=== PATIENT | male | born 1945 | race Caucasian/White ===

== ENCOUNTER 2018-10-01 16:17 | Inpatient (IN) | payer MEDICARE, SELFPAY ==
[2018-10-01 16:28] VITALS: BP 119/66; PULSE 69; RESP 14; TEMP 36.6; O2SAT 99
--- NOTE | 2018-10-01 16:41 | ED.ABDPAIN ---
HPI - Abdominal Pain General Chief Complaint: Abdominal Pain Stated Complaint: states incarcerated hernia Time Seen by Provider: 10/01/18 16:29 Source: patient Mode of arrival: ambulatory Limitations: no limitations History of Present Illness HPI narrative: 73-year-old male here for evaluation of a probable right inguinal incarcerated hernia. Patient was sent over by his provider the [facility]. He states that he has had a right inguinal hernia for many years now. He has had a repair in the past approximately 15 years ago. He states that for the past several years it has been protruding but will reduce on its own. He states that for the past several weeks specifically over the past month he has noticed that it has spent more time protruding and has been had some difficulty with reducing it. He states that over the past couple days he has had quite a bit of difficulty reducing and and now has quite a bit of discomfort. No vomiting. No change in bowel habits. No urinary symptoms. Patient states that his primary provider did not tried to reduce it prior to coming here to the ER. Related Data Home Medications Medication Instructions Recorded Confirmed No Known Home Medications 10/01/18 10/01/18 Allergies Allergy/AdvReac Type Severity Reaction Status Date / Time No Known Drug Allergies Allergy Verified 10/01/18 16:56 Review of Systems Constitutional Denies fever(s) and Denies headache(s) ENT Ears, Nose, Mouth, and Throat: Denies headache(s) Cardiovascular Denies chest pain and Denies dyspnea Respiratory Denies dyspnea Gastrointestinal Gastrointestinal: Reports abdominal pain, Denies change in stool character, Denies constipation, Denies diarrhea, Denies nausea and Denies vomiting Genitourinary Denies genital pain, Denies dysuria and Denies flank pain Comments: Right inguinal hernia Musculoskeletal Denies back pain, Denies myalgias and Denies arthralgias Integumentary/Breasts Denies rash Neurologic Denies confusion and Denies headache(s) Psychiatric Denies confusion Hematologic/Lymphatic Denies easy bleeding and Denies easy bruising [facility] Medical History Patient denies medical problems (Acute) Surgical History History of inguinal hernia repair (Acute) Social History marital status: lives independently: Yes Social History marital status: lives independently: Yes Exam Initial Vital Signs Initial Vital Signs: Vital Signs Temperature 97.9 F 10/01/18 16:28 Pulse Rate 69 10/01/18 16:28 Respiratory Rate 14 10/01/18 16:28 Blood Pressure 119/66 10/01/18 16:28 Pulse Oximetry 99 10/01/18 16:28 Const General: cooperative, well developed, well groomed and No acute distress Orientation: alert, awake and oriented x3 HENMT Head: normal to inspection and normocephalic Resp Effort & Inspection: normal respiratory effort Auscultation: clear to auscultation bilaterally Cardio Rate: regular rate Rhythm: regular rhythm Pulses: radial pulses present GI Inspection: non-distended Palpation: soft, No firm and No tender Rectal Exam: normal sphincter tone, No hemorrhoids and No lesions Other: Bright red blood per rectum External: circumcised Penis: normal penis Scrotum: scrotum normal Testes: normal Other: Right-sided inguinal hernia that was palpated and reduced with gentle pressure Skin Lesions: no lesions Rashes: no rashes Neuro General: alert, awake and oriented x3 Cognition: normal cognition Speech: speech normal Motor: muscle tone normal throughout Extrem General: normal to inspection and capillary refill normal Scores GCS Hallam coma scale eye opening: Spontaneous Alexis coma scale verbal response: Orientated Alexis coma scale motor response: Obey commands Alexis coma scale total score: 15 Course Orders Ordered: ED Orders 10/01/18 16:45 Complete Blood Count AUTO DIFF Stat Comprehensive Metabolic Panel Stat Lactate (Lactic Acid) Stat Lipase Stat 10/01/18 16:48 XR abdomen min 2V Stat 10/01/18 19:01 Education, smoking cessation ONGOING 10/01/18 19:09 CT abdomen pelvis wo/w con Urgent 10/02/18 06:15 Complete Blood Count AUTO DIFF DAILY 10/02/18 07:08 Prostate Specific Antigen Urgent Hydromorphone HCl (Dilaudid) 1 mg IV Q4HRWA PRN PRN Reason: Pain, Severe (7-10) Sodium Chloride (Normal Saline 0.9%) 1,000 mls @ 125 mls/hr IV CONT [place] Last Admin: 10/01/18 18:32 Dose: 125 mls/hr Sodium Chloride (Normal Saline 0.45%) 1,000 mls @ 100 mls/hr IV CONT [place] Ketorolac Tromethamine (Toradol) 30 mg IV Q6HR [place] Stop: 10/06/18 19:04 Lorazepam (Ativan) 1 mg IV Q6HR PRN PRN Reason: Anxiety Morphine Sulfate (Morphine) 4 mg IV Q4HR PRN PRN Reason: Pain, Mild (1-3) Ondansetron HCl (Zofran) 4 mg IV Q4HR PRN PRN Reason: Nausea And Vomiting Last Admin: 10/01/18 18:32 Dose: 4 mg Ondansetron HCl (Zofran) 4 mg IV Q8HR PRN PRN Reason: Nausea And Vomiting Oxycodone/Acetaminophen (Percocet 5/325) 2 tab PO Q4HR PRN PRN Reason: Pain, Severe (7-10) Polyethylene Glycol/Electrolytes (Golytely Solution) 4,000 ml PO NOW ONE Stop: 10/02/18 15:07 Discontinued Medications Lorazepam (Ativan) 1 mg IV NOW ONE Stop: 10/01/18 18:54 Last Admin: 10/01/18 18:55 Dose: 1 mg Morphine Sulfate (Morphine) 4 mg IV NOW ONE Stop: 10/01/18 18:12 Last Admin: 10/01/18 18:31 Dose: 4 mg Vital Signs - 8 hr 10/01/18 16:28 Temperature 97.9 F Pulse Rate 69 Respiratory Rate 14 Blood Pressure 119/66 Pulse Oximetry 99 MDM - Abdominal Pain Lab Data Attestation: I reviewed the patient's lab results. Result diagrams: 10/01/18 16:45 10/01/18 16:45 Lab Results 10/01/18 10/01/18 10/01/18 Range/Units 16:45 16:45 16:45 WBC 6.8 (4.5-11.0) X10^3/uL RBC 3.14 L (4.5-5.9) X10^6/uL Hgb 9.0 L (13.5-17.5) g/dL Hct 26.7 L (41-53) % MCV 85.1 (80-100) fL MCH 28.6 (26-34) PG MCHC 33.6 (30-36) % RDW 14.5 (11.6-14.8) % Plt Count 291 (150-400) X10^3/uL Neut % (Auto) 51.0 (50-75) % Lymph % (Auto) 36.2 (25-40) % [place] % (Auto) 9.9 (3-14) % Eos % (Auto) 2.2 (2-4) % Baso % (Auto) 0.7 (0-2) % Neut # (Auto) 3500 (3802-9131) /uL Lymph # (Auto) 2500 (0075-7807) /uL [place] # (Auto) 700 (0-900) /uL Eos # (Auto) 100 (0-450) /uL Baso # (Auto) 100 (0-100) /uL Sodium 143 (137-145) mmol/L Potassium 3.7 (3.4-5.1) mmol/L Chloride 109 H (98-107) mmol/L Carbon Dioxide 25 (22-32) mmol/L BUN 21 H (9-20) mg/dL Creatinine 1.10 (0.66-1.25) mg/dL Estimated GFR > 60.0 (>60) mL/min BUN/Creatinine Ratio 19.1 (6-22) Glucose 132 H (80-110) mg/dL Lactate 1.3 (0.7-2.1) mmol/L Calcium 9.0 (8.4-10.2) mg/dL Total Bilirubin 0.2 (0.2-1.3) mg/dL AST 28 (17-59) IU/L ALT 20 L (21-72) IU/L Alkaline Phosphatase 61 (38-126) U/L Total Protein 6.3 (6.3-8.2) g/dL Albumin 3.8 (3.5-5.0) g/dL Globulin 2.5 (1.7-4.1) g/dL Albumin/Globulin Ratio 1.5 (1.0-2.8) Lipase 57 (23-300) U/L Imaging Data Abdominal x-ray: Radiologist's impression: [address] [address] XRay Report Signed Patient: Migue Molina R#: [id number] : 1946Acct:[id number] Age/Sex: 73 / MDate of Service: 10/01/18 Loc: ED Accession Number: [id number] Procedure: XR abdomen min 2V Ordering Provider: Ivan Underwood D.O. PROCEDURE: XR ABDOMEN MIN 2V INDICATIONS: Evaluation for obstruction TECHNIQUE: 2 views of the abdomen were acquired. COMPARISON: None. FINDINGS: Surgical changes and devices: None. Bowel: No pneumoperitoneum. The bowel gas pattern is normal. Soft tissues: No masses; visualized solid organ contours appear normal in size. No suspicious abdominal calcifications. Bones: No suspicious bony abnormalities. There is moderate scoliosis. Moderate to severe degenerative disc and facet disease in lumbar spine. IMPRESSION: Nonobstructive bowel gas pattern. If clinical symptoms persist or clinical suspicion for pathology is high, CT is suggested for further evaluation. Dictated by: Jessica Sutherland M.D. on 10/01/2018 at 17:39 Approved by: Jessica Sutherland M.D. on 10/01/2018 at 17:40 MDM Narrative Medical decision making narrative: Patient does have a right-sided inguinal hernia. I was able to reduce it here in the emergency department with gentle pressure however did immediately protruded again. The patient did have some discomfort however initially declined any pain medication. He is not having any urinary symptoms. When the patient was getting up to get his x-ray it was noticed that he did have some bright red blood on the bed sheets. We was question about this he stated that he has had bright red blood per rectum for the past several days. Patient denies any pain with bowel movements. His states that actually he has had this bleeding for several days now and potentially more serous than with the patient describes. He initially did not mention this to me. The rectal exam was performed and no hemorrhoids were felt. His H&H was slightly low today would not at a point for transfusion. He is not tachycardic. I did discuss the case with General surgery who recommended the x-ray of the abdomen which was unremarkable. His lactate unremarkable. General surgery admit for further evaluation. I informed the patient that because his hernia is reduced the more important issue right now is his rectal bleeding. Patient seemed unhappy about this secondary to the discomfort he was having from his hernia. General surgery did evaluate him here in the emergency department. Holding orders were placed. Discharge Plan Departure Patient Disposition: Admitted as Observation Clinical Impression: Rectal bleed Abdominal pain Qualifiers: Abdominal location: right lower quadrant Qualified Code(s): R10.31 - Right lower quadrant pain Inguinal hernia Qualifiers: Obstruction and gangrene presence: without obstruction or gangrene Laterality: unilateral Recurrence: recurrent Qualified Code(s): K40.91 - Unilateral inguinal hernia, without obstruction or gangrene, recurrent Admit Date/Time: 10/01/18 18:49 Admit Provider: Jun Macias
--- NOTE | 2018-10-01 16:48 | DI.RAD.S_ITS ---
PROCEDURE: XR ABDOMEN MIN 2V INDICATIONS: Evaluation for obstruction TECHNIQUE: 2 views of the abdomen were acquired. COMPARISON: None. FINDINGS: Surgical changes and devices: None. Bowel: No pneumoperitoneum. The bowel gas pattern is normal. Soft tissues: No masses; visualized solid organ contours appear normal in size. No suspicious abdominal calcifications. Bones: No suspicious bony abnormalities. There is moderate scoliosis. Moderate to severe degenerative disc and facet disease in lumbar spine. IMPRESSION: Nonobstructive bowel gas pattern. If clinical symptoms persist or clinical suspicion for pathology is high, CT is suggested for further evaluation. Dictated by: Jessica Sutherland M.D. on 10/01/2018 at 17:39 Approved by: Jessica Sutherland M.D. on 10/01/2018 at 17:40
[2018-10-01 17:00] LABS: Add Manual Diff / Slide Review NO; Basophils Absolute Auto 100 /uL (0-100); Basophils Percent Auto 0.7 % (0-2); Eosinophils Absolute Auto 100 /uL (0-450); Eosinophils Percent Auto 2.2 % (2-4); Hematocrit 26.7 % (41-53); Lymphocytes Absolute Auto 2500 /uL (1100-4500); Lymphocytes Percent Auto 36.2 % (25-40); Mean Corpuscular HGB Conc 33.6 % (30-36); Mean Corpuscular Hemoglobin 28.6 PG (26-34); Mean Corpuscular Volume 85.1 fL (80-100); Monocytes Absolute Auto 700 /uL (0-900); Monocytes Percent Auto 9.9 % (3-14); Neutrophils Absolute Auto 3500 /uL (1500-7000); Platelet Count 291 X10^3/uL (150-400); Red Blood Cell Count 3.14 X10^6/uL (4.5-5.9); Red Cell Distribution Width 14.5 % (11.6-14.8); White Blood Cell Count 6.8 X10^3/uL (4.5-11.0)
[2018-10-01 17:17] LABS: Lactate (Lactic Acid) 1.3 mmol/L (0.7-2.1)
[2018-10-01 17:18] LABS: Alanine Aminotransferase 20 IU/L (21-72); Albumin 3.8 g/dL (3.5-5.0); Albumin Globulin Ratio 1.5 (1.0-2.8); Alkaline Phosphatase 61 U/L (38-126); Aspartate Aminotransferase 28 IU/L (17-59); BUN Creatinine Ratio 19.1 (6-22); Bilirubin Total 0.2 mg/dL (0.2-1.3); Blood Urea Nitrogen 21 mg/dL (9-20); Carbon Dioxide 25 mmol/L (22-32); Chloride 109 mmol/L (98-107); Estimated Glomerular Filt Rate > 60.0 mL/min (>60); Globulin 2.5 g/dL (1.7-4.1); Glucose 132 mg/dL (80-110); HEMOLYSIS 26 (0-50); Lipase 57 U/L (23-300); Potassium 3.7 mmol/L (3.4-5.1); Sodium 143 mmol/L (137-145); Total Protein 6.3 g/dL (6.3-8.2)
[2018-10-01] MEDS: MORPHINE 4 MG/ML INJ IV (18:31)
[2018-10-01] MEDS: ONDANSETRON 4 MG/2 ML INJ IV (18:32)
[2018-10-01] MEDS: SODIUM CHLORIDE 0.9% 1,000 ML 125 ML IV (18:32)
[2018-10-01] MEDS: LORazepam 2 MG/ML INJ 1 MG IV (18:55)
--- NOTE | 2018-10-01 19:09 | DI.CT.S_ITS ---
PROCEDURE: CT ABDOMEN PELVIS W CON INDICATIONS: pelvic and lumbar pain , rectal bleeding, prostate cancer TECHNIQUE: After the administration of intravenous contrast, 5 mm thick sections acquired from the diaphragm to the symphysis. 5 mm coronal and sagittal reformats were acquired. For radiation dose reduction, the following was used: automated exposure control, adjustment of mA and/or kV according to patient size. COMPARISON: None. FINDINGS: Image quality: Degraded by patient motion artifact. ABDOMEN: Lung bases: Lung bases are clear. Heart size is normal. Solid organs: Liver is normal in size and enhancement. There are numerous subcentimeter hepatic hypodensities scattered throughout the liver which are to small to characterize accurately. The largest measures approximately 2.7 cm in diameter and measures simple fluid attenuation. These are likely multiple hepatic cysts. Gallbladder is unremarkable. Biliary system is non dilated. Pancreas enhances normally. Spleen is normal in size and enhancement. No adrenal nodules. Kidneys demonstrate normal size and enhancement, without hydronephrosis. Peritoneum and bowel: Bowel loops demonstrate normal wall thickness and caliber. No free fluid or air. Nodes and vessels: No retroperitoneal or mesenteric adenopathy by size criteria. Aorta and inferior vena cava are normal in size. Miscellaneous: No ventral hernias. Fat containing umbilical hernia without acute inflammation. PELVIS: Genitourinary: Bladder wall thickness is normal. Miscellaneous: No inguinal hernias or adenopathy. Bones: There is a subtle tiny lucencies involving the osseous structures of the iliac wing bilaterally and upper sacrum. Similar findings in the lumbar spine which are predominantly noted near the endplates. These may be related to decreased bone mineralization. No sclerotic lesions or other suspicious intraosseous lesions identified. Moderate multilevel lumbar spondylosis. There is a moderate levoscoliosis of the lumbar spine centered at L4. No acute vertebral body compression fractures. IMPRESSION: 1. CT abdomen and pelvis without acute abnormalities. 2. Moderate levoscoliosis of the lumbar spine with associated multilevel lumbar spondylosis. No acute compression fractures. 3. Multiple scattered hepatic hypodensities with most being too small to accurately characterize. The largest measures simple fluid attenuation. Findings are likely related to multiple hepatic cysts. However, metastatic disease not completely excluded given the reported history of prostate cancer. 4. A few, subtle and tiny osseous lucencies noted in the lumbar spine and iliac wings which may be related to decreased bone mineralization. No sclerotic lesions identified. Consider further evaluation with nuclear medicine bone scan if there is clinical concern for osseous metastases. Dictated by: Arie Costello M.D. on 10/01/2018 at 23:50 Approved by: Arie Costello M.D. on 10/02/2018 at 0:06
--- NOTE | 2018-10-01 19:14 | PM.HP.1 ---
History of Present Illness Date Patient Seen: 10/01/18 Time Patient Seen: 19:14 Chief complaint: states incarcerated hernia Narrative: 73-year-old white male comes emergency room with numerous complaints. Most notably a right inguinal hernia which he is not able to reduce. He has had this hernia for a decade. This is a recurrence hernia which normally is reducible. Additionally the patient has bright red rectal bleeding for months. Furthermore he has excruciating pain in the low lumbar area on the right side radiating down the right leg. Patient has a history of prostatectomy for cancer about 12 years ago. He has not had follow-up for the last 5 years. He says that 5 years ago had a normal PSA. Had a colonoscopy over a decade ago. He has had this rectal bleeding for months. He is anemic with a hemoglobin of 9. He is writhing in bed with pain in his right thigh and right hip. Patient History Medical History Patient denies medical problems (Acute) Surgical History History of inguinal hernia repair (Acute) Social History marital status: lives independently: Yes Family & Social History Social History: lives independently Yes Meds Home Medications Medication Instructions Recorded Confirmed Type No Known Home Medications 10/01/18 10/01/18 History Allergies Allergy/AdvReac Type Severity Reaction Status Date / Time No Known Drug Allergies Allergy Verified 10/01/18 16:56 Review of Systems Review of Systems All systems reviewed & are unremarkable except as noted in HPI and below Exam Vital Signs (past 8 hours): - 10/01/18 16:28 Temperature 97.9 F Pulse Rate 69 Respiratory Rate 14 Blood Pressure 119/66 Pulse Oximetry 99 Oxygen Delivery Method Room Air Narrative Exam Narrative: Patient is writhing in bed in acute pain that he has difficulty pinpointing. Pain is really in his right hip and femoral area lateral aspect of the right thigh seems to be emanating from his lumbar spine. Patient also has a reducible right inguinal hernia which I do not think is causing this pain. Lungs are clear with no rales or wheezes Heart regular rhythm no murmur Abdomen is soft and nontender no organomegaly is noted He has a reducible right inguinal hernia which is direct. Rectal exam reveals no mass but he has cathy red blood at the anal verge and a posterior fissure in ANO which is very tender and painful. Neurologic appears to be intact at this time He does have tenderness to percussion of the lumbar spine. Objective Labs Result Diagrams: 10/01/18 16:45 10/01/18 16:45 Labs: Laboratory Results - last 24 hr 10/01/18 10/01/18 10/01/18 16:45 16:45 16:45 WBC 6.8 RBC 3.14 L Hgb 9.0 L Hct 26.7 L MCV 85.1 MCH 28.6 MCHC 33.6 RDW 14.5 Plt Count 291 Neut % (Auto) 51.0 Lymph % (Auto) 36.2 [place] % (Auto) 9.9 Eos % (Auto) 2.2 Baso % (Auto) 0.7 Neut # (Auto) 3500 Lymph # (Auto) 2500 [place] # (Auto) 700 Eos # (Auto) 100 Baso # (Auto) 100 Sodium 143 Potassium 3.7 Chloride 109 H Carbon Dioxide 25 BUN 21 H Creatinine 1.10 Estimated GFR > 60.0 BUN/Creatinine Ratio 19.1 Glucose 132 H Lactate 1.3 Calcium 9.0 Total Bilirubin 0.2 AST 28 ALT 20 L Alkaline Phosphatase 61 Total Protein 6.3 Albumin 3.8 Globulin 2.5 Albumin/Globulin Ratio 1.5 Lipase 57 Assessment & Plan Assessment & Plan narrative: Patient has numerous problems. He came here because he thought his incarcerated right inguinal hernia was causing all this pain. Actually is hernia is fairly easy to reduce. Abdominal films show no bowel obstruction. He has been passing flatus and having bowel movements. He has had rectal bleeding for 2 months at least. Most recent colonoscopy over a decade ago. He has considerable bone pain in the lumbar spine which is radiating down the right leg which I believe may be related to his prostate cancer. He had a prostatectomy about 12 years ago and has not had follow-up for 5 years. My plan is abdominal pelvic CT the look at his bones with possible metastatic prostate cancer. Will see if there is any visceral issue on a CT scan as well. Patient will be prepped tomorrow for colonoscopy the following day. His hemoglobin is 9 and he does not require transfusion at this time. Will check a PSA. Ultimately if he is cleared of the above-mentioned issues I will repair the recurrent right inguinal hernia. I think the hernia is the least of his problems at this time. I have explained this to the patient and his who understand and agree to the plan. Roberto will get him comfortable with Dilaudid Ativan and other medications.
[2018-10-01 20:31] VITALS: O2SAT 96; BMI 27.5
[2018-10-01] MEDS: SODIUM CHLORIDE 0.45% 1,000 ML 100 ML IV (20:47)
[2018-10-01 20:56] VITALS: BP 127/76; PULSE 64; RESP 18; TEMP 36.9; O2SAT 96
[2018-10-01] MEDS: OXYCODONE/ACETAMINOPHEN 5/325 TABLET 2 TAB PO (21:05)
[2018-10-01 23:10] VITALS: BP 101/55; PULSE 63; RESP 18; TEMP 36.9; O2SAT 97
--- NOTE | 2018-10-01 23:44 | PC.NURSE ---
Addendum entered by Hattie Escalante R.N. 10/01/18 23:53: 2100- Pt c/o pain to rectal/right groin area 6-09/25, medicated with percocet 1 tab and Tylenol 325mg, effective. Original Note: 2029- Pt arrived to room 221 from ED via bed. A/O x4, 96%RA, LS clear, denies SOB. RFA 1/2 NS @ 100. SBA to BRP to void. Pt reported severe pain in ED, from rectum and inguinal hernia, which radiates to right upper thigh and across thigh. Reports pain at a tolerable level of 3/10 at this time. Educated on pain management and pt agreeable to ask for pain meds, not to let the pain get out of control. Bowel prep ordered for tomorrow, followed by colonoscopy on . Pt educated and aware of the effects of bowel prep, and has agreed to wear brief and use BSC. Bed alarm on for safety. Call light in reach.
[2018-10-02] VITALS (9 sets, daily range): BP systolic 113–147; BP diastolic 56–84; PULSE 48–62; RESP 16–17; TEMP 36.4–36.9; O2SAT 94–98
[2018-10-02] MEDS: KETOROLAC 30 MG/ML VIAL IV ×5 (00:01→23:46)
--- NOTE | 2018-10-02 04:41 | PC.NURSE ---
Pt VSS, Lung sounds clear bilaterally, CMS intact and Bowel tones positive. Pt's pain has been under control this shift. Pt is on clear liquid diet and will be prepped for Colonoscopy that is on 09/03/18.
[2018-10-02] MEDS: SODIUM CHLORIDE 0.45% 1,000 ML 100 ML IV (05:55)
[2018-10-02] MEDS: HYDROMORPHONE 1 MG INJ IV ×2 (06:23→16:17)
[2018-10-02 07:10] LABS: Add Manual Diff / Slide Review NO; Basophils Absolute Auto 0 /uL (0-100); Basophils Percent Auto 0.6 % (0-2); Eosinophils Absolute Auto 100 /uL (0-450); Eosinophils Percent Auto 2.1 % (2-4); Hematocrit 25.4 % (41-53); Hemoglobin 8.1 g/dL (13.5-17.5); Lymphocytes Absolute Auto 2200 /uL (1100-4500); Lymphocytes Percent Auto 37.3 % (25-40); Mean Corpuscular Hemoglobin 27.5 PG (26-34); Mean Corpuscular Volume 86.1 fL (80-100); Monocytes Absolute Auto 500 /uL (0-900); Monocytes Percent Auto 8.4 % (3-14); Neutrophils Absolute Auto 3000 /uL (1500-7000); Neutrophils Percent Auto 51.6 % (50-75); Platelet Count 261 X10^3/uL (150-400); Red Blood Cell Count 2.95 X10^6/uL (4.5-5.9); Red Cell Distribution Width 14.6 % (11.6-14.8); White Blood Cell Count 5.8 X10^3/uL (4.5-11.0)
[2018-10-02 08:18] LABS: Prostate Specific Antigen < 0.064 ng/mL (0.10-4.00)
--- NOTE | 2018-10-02 09:19 | PM.PN.1 ---
Subjective Date Patient Seen: 10/02/18 Time Patient Seen: 09:19 Interval history: The patient has had a quiet night after receiving significant analgesia through the night alleviating his disabling hip and back pain. He is comfortable in bed this morning seems to be pain free has no nausea or vomiting Exam Vital Signs (past 8 hours): - 10/02/18 03:10 Temperature 98.4 F Pulse Rate 62 Respiratory Rate 17 Blood Pressure 119/56 L Pulse Oximetry 97 Oxygen Delivery Method Room Air Oxygen Flow Rate 0 Narrative Exam Narrative: Patient is alert and oriented much more comfortable than last night Abdomen is soft and nontender Patient still has a reducible right inguinal hernia There are no new findings Objective Labs Result Diagrams: 10/02/18 06:58 10/01/18 16:45 Labs: Laboratory Results - last 24 hr 10/01/18 10/01/18 10/01/18 16:45 16:45 16:45 WBC 6.8 RBC 3.14 L Hgb 9.0 L Hct 26.7 L MCV 85.1 MCH 28.6 MCHC 33.6 RDW 14.5 Plt Count 291 Neut % (Auto) 51.0 Lymph % (Auto) 36.2 [place] % (Auto) 9.9 Eos % (Auto) 2.2 Baso % (Auto) 0.7 Neut # (Auto) 3500 Lymph # (Auto) 2500 [place] # (Auto) 700 Eos # (Auto) 100 Baso # (Auto) 100 Sodium 143 Potassium 3.7 Chloride 109 H Carbon Dioxide 25 BUN 21 H Creatinine 1.10 Estimated GFR > 60.0 BUN/Creatinine Ratio 19.1 Glucose 132 H Lactate 1.3 Calcium 9.0 Total Bilirubin 0.2 AST 28 ALT 20 L Alkaline Phosphatase 61 Total Protein 6.3 Albumin 3.8 Globulin 2.5 Albumin/Globulin Ratio 1.5 Lipase 57 Prostate Specific Ag 10/02/18 10/02/18 06:58 06:58 WBC 5.8 RBC 2.95 L Hgb 8.1 L Hct 25.4 L MCV 86.1 MCH 27.5 MCHC 32.0 RDW 14.6 Plt Count 261 Neut % (Auto) 51.6 Lymph % (Auto) 37.3 [place] % (Auto) 8.4 Eos % (Auto) 2.1 Baso % (Auto) 0.6 Neut # (Auto) 3000 Lymph # (Auto) 2200 [place] # (Auto) 500 Eos # (Auto) 100 Baso # (Auto) 0 Sodium Potassium Chloride Carbon Dioxide BUN Creatinine Estimated GFR BUN/Creatinine Ratio Glucose Lactate Calcium Total Bilirubin AST ALT Alkaline Phosphatase Total Protein Albumin Globulin Albumin/Globulin Ratio Lipase Prostate Specific Ag < 0.064 L Assessment & Plan Assessment & Plan narrative: Patient had a CT scan of the abdomen and pelvis. There are no significant visceral abnormalities other than numerous small cysts in the liver. These are interpreted by the radiologist as being likely cystic not solid. He does have numerous abnormalities small lucencies throughout the pelvis. These are scattered both sides of the pelvis and could represent prostatic malignancy metastatic disease. Radiologist is uncertain about that. Recommendation was for a bone scan which is ordered. Patient's hemoglobin has fallen from 9-8 this morning. Patient has had months of red rectal bleeding. After the bone scan today he will have a colonoscopy prep and I have scheduled his colonoscopy for 1:00 a.m. tomorrow afternoon. Patient and his understand all of the above data and agreed to proceeding with a colonoscopy.
--- NOTE | 2018-10-02 09:23 | P.PN_ITS ---
Subjective Date Patient Seen: 10/02/18 Time Patient Seen: 09:19 Interval history: The patient has had a quiet night after receiving significant analgesia through the night alleviating his disabling hip and back pain. He is comfortable in bed this morning seems to be pain free has no nausea or vomiting Exam Vital Signs (past 8 hours): - 10/02/18 03:10 Temperature 98.4 F Pulse Rate 62 Respiratory Rate 17 Blood Pressure 119/56 L Pulse Oximetry 97 Oxygen Delivery Method Room Air Oxygen Flow Rate 0 Narrative Exam Narrative: Patient is alert and oriented much more comfortable than last night Abdomen is soft and nontender Patient still has a reducible right inguinal hernia There are no new findings Objective Labs Result Diagrams: 10/02/18 06:58 10/01/18 16:45 Labs: Laboratory Results - last 24 hr 10/01/18 10/01/18 10/01/18 16:45 16:45 16:45 WBC 6.8 RBC 3.14 L Hgb 9.0 L Hct 26.7 L MCV 85.1 MCH 28.6 MCHC 33.6 RDW 14.5 Plt Count 291 Neut % (Auto) 51.0 Lymph % (Auto) 36.2 [place] % (Auto) 9.9 Eos % (Auto) 2.2 Baso % (Auto) 0.7 Neut # (Auto) 3500 Lymph # (Auto) 2500 [place] # (Auto) 700 Eos # (Auto) 100 Baso # (Auto) 100 Sodium 143 Potassium 3.7 Chloride 109 H Carbon Dioxide 25 BUN 21 H Creatinine 1.10 Estimated GFR > 60.0 BUN/Creatinine Ratio 19.1 Glucose 132 H Lactate 1.3 Calcium 9.0 Total Bilirubin 0.2 AST 28 ALT 20 L Alkaline Phosphatase 61 Total Protein 6.3 Albumin 3.8 Globulin 2.5 Albumin/Globulin Ratio 1.5 Lipase 57 Prostate Specific Ag 10/02/18 10/02/18 06:58 06:58 WBC 5.8 RBC 2.95 L Hgb 8.1 L Hct 25.4 L MCV 86.1 MCH 27.5 MCHC 32.0 RDW 14.6 Plt Count 261 Neut % (Auto) 51.6 Lymph % (Auto) 37.3 [place] % (Auto) 8.4 Eos % (Auto) 2.1 Baso % (Auto) 0.6 Neut # (Auto) 3000 Lymph # (Auto) 2200 [place] # (Auto) 500 Eos # (Auto) 100 Baso # (Auto) 0 Sodium Potassium Chloride Carbon Dioxide BUN Creatinine Estimated GFR BUN/Creatinine Ratio Glucose Lactate Calcium Total Bilirubin AST ALT Alkaline Phosphatase Total Protein Albumin Globulin Albumin/Globulin Ratio Lipase Prostate Specific Ag < 0.064 L Assessment & Plan Assessment & Plan narrative: Patient had a CT scan of the abdomen and pelvis. There are no significant visceral abnormalities other than numerous small cysts in the liver. These are interpreted by the radiologist as being likely cystic not solid. He does have numerous abnormalities small lucencies throughout the pelvis. These are scattered both sides of the pelvis and could represent prostatic malignancy metastatic disease. Radiologist is uncertain about that. Recommendation was for a bone scan which is ordered. Patient's hemoglobin has fallen from 9-8 this morning. Patient has had months of red rectal bleeding. After the bone scan today he will have a colonoscopy prep and I have scheduled his colonoscopy for 1:00 a.m. tomorrow afternoon. Patient and his understand all of the above data and agreed to proceeding with a colonoscopy.
[2018-10-02] MEDS: DEXTROSE 5%-0.45% NS 1,000 ML 100 ML IV ×2 (11:08→21:12)
--- NOTE | 2018-10-02 12:00 | DI.NM.S_ITS ---
PROCEDURE: NM BONE SCAN WHOLE BODY RADIOPHARMACEUTICAL: 21.6 mCi Tc-99m MDP IV. INDICATIONS: prostate cancer..pelvic mets possible TECHNIQUE: Delayed whole-body scintigrams were obtained approximately 3-4 hours after intravenous injection of radiotracer. Anterior and posterior views were acquired from vertex to feet. COMPARISON: [facility], CT, CT ABDOMEN PELVIS W CON, 10/01/2018, 19:30. [facility], CR, XR ABDOMEN MIN 2V, 10/01/2018, 17:20. [facility], MR, MR LUMBAR SPINE W CON, 10/02/2018, 19:50. FINDINGS: No scintigraphic abnormalities on bone scan in the iliac bones to correlate with small lucencies seen on CT. There are foci of increased uptake in cervical, thoracic and lumbar spine with distribution indistinguishable from degenerative disc and facet disease. The comparison CT demonstrate degenerative changes in lumbar spine. Early metastasis to spine could be obscured by degenerative changes. There are foci of increased periarticular activity involving shoulders, sternomanubrial joint, sternoclavicular joints, elbows, wrists, right knee, right ankle and left foot, compatible with degenerative/arthritic changes. IMPRESSION: 1. No definitive scintigraphic findings to suggest metastatic disease. 2. Small lucencies seen on CT in lumbar spine and iliac wings are likely below the resolution of bone scan. 3. Degenerative/osteolytic changes as described. Dictated by: Jessica Sutherland M.D. on 10/04/2018 at 14:35 Approved by: Jessica Sutherland M.D. on 10/04/2018 at 16:12
--- NOTE | 2018-10-02 13:02 | DI.MRI.S_ITS ---
PROCEDURE: MR LUMBAR SPINE W CON INDICATIONS: POSSIBLE METASTATIC DISEASE TECHNIQUE: Localizer sequences followed by coronal T1. Patient unable to continue exam secondary to right hip pain. COMPARISON: [facility], CT, CT ABDOMEN PELVIS W CON, 10/01/2018, 19:30. FINDINGS: Limited study aborted early, nondiagnostic. There is small focal lesions in L3 and L4 which may represent hemangiomas. IMPRESSION: Patient unable to tolerate examination. Study terminated early. Nondiagnostic study. Comment: Patient is noted to be scheduled for bone scan tomorrow. Consider whether to reschedule this exam following bone scan. Perhaps, patient might require sedation. Dictated by: Bruno Holden M.D. on 10/02/2018 at 21:02 Approved by: Bruno Holden M.D. on 10/02/2018 at 21:05
[2018-10-02] MEDS: PEG3350/SOD SULF,BICARB,CL/KCL 4,000 ML SOLUTION 4000 ML PO (16:01)
[2018-10-02] MEDS: ONDANSETRON 4 MG/2 ML INJ IV (19:03)
--- NOTE | 2018-10-02 20:12 | PC.NURSE ---
Addendum entered by Kimber Walker R.N. 10/02/18 20:53: pt unable to complete MRI due to pain and nausea. When pt arrived back to room he vomited over 400ml of clear fluids. Voided 225 of concentrated urine. Encouraged oral fluids, both water and GoLytely. pt reporting 7/10 pain and feels generalized malaise. Original Note: pt AO and receptive to care. Fatigued and sleeping most of shift. D5 1/2 NS infusing at 100/hr. VSS. RLQ tenderness and 7/10 pain. Dilaudid 1ml IV administered at 1615. Colonoscopy scheduled for 10/03 at 1300 and placed GoLYTELY at bedside at 1600 will instructions to complete this evening (2100) and pt agreed. I had to wake pt up a couple times to remind him to continue to drink the solution. pt started vomiting around 1850 after taking a couple sips, 5ml of clear emesis in bag. Zofran administered and pt reported feeling a little better, although he still reports a generalized malaise.
--- NOTE | 2018-10-02 20:18 | PC.NURSE ---
OFF FLOOR FOR MRI left floor at 1999 for MRI. pt saline locked and transferred to wheelchair.
[2018-10-03] VITALS (14 sets, daily range): BP systolic 99–137; BP diastolic 65–77; PULSE 45–60; RESP 11–18; TEMP 36.3–36.8; O2SAT 94–100; BMI 28.2
[2018-10-03] MEDS: MORPHINE 2 MG/ML INJ 4 MG IV ×4 (02:38→21:06)
--- NOTE | 2018-10-03 06:07 | PC.NURSE ---
Addendum entered by Saranya Quiñones R.N. 10/03/18 06:44: Pt has about a quarter left of his bowel prep to finish. He is working hard on it. Encouraging him to try to finish it before 0700. Original Note: Pt is AxOx3, at beginning of shift at 2300 pt had only drank half of his Golytely Prep. He had been having some bouts of emesis during evening shift. He is no longer nauseous but just having a hard time getting all of it down. Dr. Macias called last night for any further instructions or instructions on how to address the bowel prep. Dr. Macias instructed to encourage pt to continue to finish prep til the morning since his colonoscopy isn't scheduled until today at 1300. He has been working on finishing the prep throughout the night. He has had 3 liquid brown BMs (some with small cathy red blood). HR has been rosalina in the 50s. Asymptomatic. Difficulties with adequate pain management. Pain said the Dilaudid from evening shift made him not feel great, he thinks the Toradol has been having some effect. I gave 2mg morphine for right leg pain, it was ineffective, I then gave the rest of the dose for a total of 4mg morphine and that was effective as per patient. His pain is not so much the groin. His main complaint is the outside of his right leg. Urine output has been much better since trying to drink the bowel prep. Urine is clear light yellow. Ambulates independently to bathroom in room. IVF running as ordered.
[2018-10-03] MEDS: KETOROLAC 30 MG/ML VIAL IV ×4 (06:33→23:45)
[2018-10-03] MEDS: BISACODYL 5 MG TABLET 20 MG PO ×2 (06:58→10:07)
[2018-10-03 07:29] LABS: Add Manual Diff / Slide Review NO; Basophils Absolute Auto 0 /uL (0-100); Basophils Percent Auto 0.5 % (0-2); Eosinophils Absolute Auto 100 /uL (0-450); Eosinophils Percent Auto 1.7 % (2-4); Hematocrit 26.5 % (41-53); Hemoglobin 8.5 g/dL (13.5-17.5); Lymphocytes Absolute Auto 2100 /uL (1100-4500); Lymphocytes Percent Auto 31.6 % (25-40); Mean Corpuscular Hemoglobin 27.5 PG (26-34); Mean Corpuscular Volume 85.7 fL (80-100); Monocytes Absolute Auto 500 /uL (0-900); Monocytes Percent Auto 7.4 % (3-14); Neutrophils Absolute Auto 4000 /uL (1500-7000); Neutrophils Percent Auto 58.8 % (50-75); Platelet Count 277 X10^3/uL (150-400); Red Cell Distribution Width 14.3 % (11.6-14.8); White Blood Cell Count 6.8 X10^3/uL (4.5-11.0)
[2018-10-03] MEDS: ONDANSETRON 4 MG/2 ML INJ IV ×2 (08:00→22:03)
--- NOTE | 2018-10-03 08:39 | CM.DANOTE ---
Discharge Planning/Care Management DCP: assessment: case received yesterday and discussed in Team Rounds. Testing was in place as full dx and treatment plan was in process. EMR reviewed. Planned to see pt this morning to continue the assessment process. Met now with pt as planned. Introduced self and role. Pt is a 73 year old male who admitted to care of General Surgeons: Dr. Macias. Payer: Medicare PCP: pt says he has not seen a doctor in 10 years and has no PCP. Pt acknowledges that his initial assessment of an incarcerated hernia may not be all that is going on in his body. The lumbar MRI was attempted yesterday but too painful/R Hip and outer thigh so was cut short. A bone scan is planned today. Pt reports he is typically functionally independent in the community. Uses no AD. Has had occasional back pain that comes and goes over the last 2 years but the pain in the outer thigh is new. P: follow as POC unfolds to assist with any d/c needs that may arise. PT at this time looks comfortable. CM Discharge Assessment Start: 10/03/18 08:35 Freq: Status: Active Protocol: Document 10/03/18 08:36 ITV (Rec: 10/03/18 08:37 [email or web address] [id number]) Discharge Planning Assessment Advance Directives? No History Provided By Patient Medical Record Has Patient been admitted in last 30 No days? Prior Living Arrangements House Comment lives with on [place]. Household Members spouse Type of transporation used prior to Drives own vehicle admit Independent with ADL's Yes Is patient alert and oriented? Yes Review Status In Process Document 10/03/18 08:38 ITV (Rec: 10/03/18 08:39 ITV [id number]) Discharge Planning Assessment Advance Directives? No History Provided By Patient Medical Record Has Patient been admitted in last 30 No days? Prior Living Arrangements House Comment lives with on [place]. Household Members spouse Type of transporation used prior to Drives own vehicle admit Independent with ADL's Yes Is patient alert and oriented? Yes Whiteboard Updated in Patient Room with Yes name and ext. # of Electronic Lab Technician Review Status In Process
--- NOTE | 2018-10-03 12:14 | PC.NURSE ---
After sipping all morning on golytely (Dr. Macias aware that patient had not completed it and po dulcolax ordered x , see MAR), patient picked up for procedure, last BM in tiolet noted to be bloody.
[2018-10-03] MEDS: SODIUM CHLORIDE 0.9% 1,000 ML 84 ML IV (12:31)
[2018-10-03] MEDS: fentaNYL 250 MCG/5 ML INJ IV (13:32)
[2018-10-03] MEDS: MIDAZOLAM 5 MG/5 ML VIAL IV (13:33)
--- NOTE | 2018-10-03 13:50 | PM.OP.ENDO ---
Operative Date/Time/Diagnoses Date of procedure: 10/03/18 Time of procedure: 13:50 Pre-op diagnosis: Hematochezia Post-op diagnosis: other (Hematochezia sigmoid diverticulosis internal hemorrhoids with anal fissure) Procedure & Clinicians Study performed: Total colonoscopy Same procedure as scheduled: Yes Surgeon: Jun Macias Procedure Notes SCOAP/Timeout: Was done Procedure in detail: The patient was properly identified during surgical pause the flexible fiberoptic colonoscope inserted transanally to the cecum patient was comfortable throughout the procedure was given a total of 4 mg of Versed and 200 micro g of fentanyl. Of note there is no active bleeding in the patient's colon. There was no old blood in the colon. Patient has sigmoid diverticulosis which were not bleeding and showed no signs of recent bleeding. Patient has no tumors or polyps. Patient does have dilated internal hemorrhoids and a fissure in ANO. The patient's rectal veins are also quite dilated. I took photographs of these vessels. Scope withdrawal time: 12 Sedation minutes: 28 Findings: diverticulosis, internal hemorrhoids and vascular ectasias Specimen(s): other Recommendations: Colonscopy in 10 years and High fiber diet Disposition: PACU
--- NOTE | 2018-10-03 13:54 | P.OP.ENDO_ITS ---
Operative Date/Time/Diagnoses Date of procedure: 10/03/18 Time of procedure: 13:50 Pre-op diagnosis: Hematochezia Post-op diagnosis: other (Hematochezia sigmoid diverticulosis internal hemorrhoids with anal fissure) Procedure & Clinicians Study performed: Total colonoscopy Same procedure as scheduled: Yes Surgeon: uJn Macias Procedure Notes SCOAP/Timeout: Was done Procedure in detail: The patient was properly identified during surgical pause the flexible fiberoptic colonoscope inserted transanally to the cecum patient was comfortable throughout the procedure was given a total of 4 mg of Versed and 200 micro g of fentanyl. Of note there is no active bleeding in the patient's colon. There was no old blood in the colon. Patient has sigmoid diverticulosis which were not bleeding and showed no signs of recent bleeding. Patient has no tumors or polyps. Patient does have dilated internal hemorrhoids and a fissure in ANO. The patient's rectal veins are also quite dilated. I took photographs of these vessels. Scope withdrawal time: 12 Sedation minutes: 28 Findings: diverticulosis, internal hemorrhoids and vascular ectasias Specimen(s): other Recommendations: Colonscopy in 10 years and High fiber diet Disposition: PACU
--- NOTE | 2018-10-03 13:59 | P.PN_ITS ---
Subjective Date Patient Seen: 10/03/18 Time Patient Seen: 13:57 Interval history: Patient has no new complaints. Still is complaining of low back pain radiating into the right thigh laterally. The also complains of pain from his reducible inguinal hernia. Despite the patient achieving a colonoscopy prep he has had minimal rectal bleeding. His hemoglobin has gone from 8.1 date 0.5. Exam Vital Signs (past 8 hours): - 10/03/18 08:00 10/03/18 12:00 10/03/18 12:27 Temperature 97.8 F 97.6 F 97.9 F Pulse Rate 51 L 48 L 51 L Respiratory Rate 16 16 Blood Pressure 125/71 127/72 133/77 Pulse Oximetry 98 98 96 10/03/18 13:51 Temperature 97.6 F Pulse Rate 58 L Respiratory Rate 11 L Blood Pressure 100/68 Pulse Oximetry 98 Oxygen Delivery Method Room Air Oxygen Flow Rate 0 Narrative Exam Narrative: No new changes. I just finished the colonoscopy for the patient. Objective Labs Result Diagrams: 10/03/18 07:21 10/01/18 16:45 Labs: Laboratory Results - last 24 hr 10/03/18 07:21 WBC 6.8 RBC 3.10 L Hgb 8.5 L Hct 26.5 L MCV 85.7 MCH 27.5 MCHC 32.0 RDW 14.3 Plt Count 277 Neut % (Auto) 58.8 Lymph % (Auto) 31.6 [place] % (Auto) 7.4 Eos % (Auto) 1.7 L Baso % (Auto) 0.5 Neut # (Auto) 4000 Lymph # (Auto) 2100 [place] # (Auto) 500 Eos # (Auto) 100 Baso # (Auto) 0 Assessment & Plan Assessment & Plan narrative: No obvious bleeding was encountered on the colonoscopy. There is no old blood in the colon either. Patient has dilated internal hemorrhoids and an anal fissure. He also has numerous sigmoid diverticuli. There is nothing bleeding at this time. The nature of his bleeding has been bright red blood and I think it is probably from his hemor rhoids or fissure. Possibly he could have some diverticular bleeding no sign of that on colonoscopy. Still would like to do his bone scan to evaluate his pelvis. We may be able to repair his inguinal hernia in another day or so. This depends on the findings of his pelvic evaluation.
--- NOTE | 2018-10-03 14:34 | SUR.PHASEI ---
pt transferred to acute care floor in stable condition. pt alert and talking to RN during transport. Bedside report given to FREDDIE Gautam upon arrival to room. Transferred care of pt to FREDDIE Gautam at that time.
[2018-10-03] MEDS: IRON SUCROSE 200 MG in SODIUM CHLORIDE 0.9% 100 ML 220 ML IV (17:02)
[2018-10-03] MEDS: DEXTROSE 5%-0.45% NS 1,000 ML 100 ML IV (19:43)
[2018-10-03] MEDS: OXYCODONE/ACETAMINOPHEN 5/325 TABLET 2 TAB PO ×2 (22:03→23:51)
[2018-10-04] VITALS (17 sets, daily range): BP systolic 106–157; BP diastolic 52–84; PULSE 52–67; RESP 12–99; TEMP 36.6–37.7; O2SAT 18–100; BMI 28.3
[2018-10-04] MEDS: OXYCODONE/ACETAMINOPHEN 5/325 TABLET 2 TAB PO (04:57)
[2018-10-04] MEDS: KETOROLAC 30 MG/ML VIAL IV ×3 (05:33→18:34)
[2018-10-04] MEDS: DEXTROSE 5%-0.45% NS 1,000 ML 100 ML IV (05:38)
--- NOTE | 2018-10-04 06:04 | PC.NURSE ---
No rectal bleeding noted, Medicated x2 doses of 1 tab. Percocet pain level 4-8/10, did not sleep well last night. Pt. trying to sleep now, denies any nausea all shift, will cont. POC & monitor.
[2018-10-04 06:28] LABS: Add Manual Diff / Slide Review NO; Basophils Absolute Auto 0 /uL (0-100); Basophils Percent Auto 0.6 % (0-2); Eosinophils Absolute Auto 100 /uL (0-450); Eosinophils Percent Auto 2.2 % (2-4); Hematocrit 23.9 % (41-53); Hemoglobin 7.8 g/dL (13.5-17.5); Lymphocytes Absolute Auto 1800 /uL (1100-4500); Lymphocytes Percent Auto 33.6 % (25-40); Mean Corpuscular HGB Conc 32.6 % (30-36); Mean Corpuscular Hemoglobin 27.7 PG (26-34); Mean Corpuscular Volume 84.9 fL (80-100); Monocytes Absolute Auto 500 /uL (0-900); Monocytes Percent Auto 9.6 % (3-14); Neutrophils Absolute Auto 2900 /uL (1500-7000); Platelet Count 245 X10^3/uL (150-400); Red Blood Cell Count 2.82 X10^6/uL (4.5-5.9); Red Cell Distribution Width 14.8 % (11.6-14.8); White Blood Cell Count 5.3 X10^3/uL (4.5-11.0)
--- NOTE | 2018-10-04 09:21 | P.PN_ITS ---
Subjective Date Patient Seen: 10/04/18 Time Patient Seen: 09:19 Interval history: Patient is comfortable feels better today than yesterday still having some radicular pain right hip and complaining of pain from is right inguinal hernia. No more GI bleeding Exam Vital Signs (past 8 hours): - 10/04/18 05:27 10/04/18 07:00 Temperature 98.2 F Pulse Rate 54 L Respiratory Rate 16 Blood Pressure 106/52 L Pulse Oximetry 97 98 Oxygen Delivery Method Room Air Oxygen Flow Rate 0 Narrative Exam Narrative: Patient is alert and oriented Abdomen soft nontender Right inguinal hernia is reducible Objective Labs Result Diagrams: 10/04/18 06:16 10/01/18 16:45 Labs: Laboratory Results - last 24 hr 10/04/18 06:16 WBC 5.3 RBC 2.82 L Hgb 7.8 L Hct 23.9 L MCV 84.9 MCH 27.7 MCHC 32.6 RDW 14.8 Plt Count 245 Neut % (Auto) 54.0 Lymph % (Auto) 33.6 [place] % (Auto) 9.6 Eos % (Auto) 2.2 Baso % (Auto) 0.6 Neut # (Auto) 2900 Lymph # (Auto) 1800 [place] # (Auto) 500 Eos # (Auto) 100 Baso # (Auto) 0 Assessment & Plan Assessment & Plan narrative: Patient has 3 problems is GI bleed I think is related to internal hemorrhoids. His history of prostate cancer will be evaluated today by bone scan to further evaluate the lucencies noted in his pelvis on CT scan during his admission. Lastly he does have a recurrent right inguinal hernia which is quite painful and he would like that repaired. The bone scan is for this afternoon and if it shows no sign of malignancy then I will repair his right inguinal hernia tomorrow morning. Patient understands this plan and agrees
--- NOTE | 2018-10-04 11:09 | DIET.PN ---
Dietary Progress Note Assessment: Consult request for 74 yom with chronic hemorrhoids and diverticulosis x several months. Pt reports usual diet intake consists of fish, moderate amounts of fruits and vegetables, but admits to eating occasional red meat, sweets, and alcohol/caffeine. Pt also reports the majority of fluid intake does not come from water. He has been having rectal bleeding for 2 mo and extreme abdominal pain. HT: 182.88 cm WT: 94.6 kg BMI: 28.3 normal MNA: 14 normal nutrition status Diet: NPO Labs: Glucose: 132 Nutrition Diagnosis: Inadequate fiber intake r/t food- and nutrition- related knowledge deficit concerning desirable food quantities of fiber aeb conditions associated with diagnosis abdominal pain, hernia, rectal bleeding, diverticulosis. Interventions: Discussed high fiber nutrition therapy for Diverticulosis. Provided materials explaining the diagnosis and reasons to incorporate high fiber foods. Provided lists of fiber containing foods and recommended daily amounts needed. Recommended increase water intake as fiber increases. Monitoring/Evaluations: Diet Advance/Tolerance, PO's, weight
--- NOTE | 2018-10-04 11:23 | PC.NURSE ---
AM NOTE - pt is alert and ambul to br, voided, denies nausea, states pain managed with earlier toradol and percocet, states r groin area discomfort comes and goes, ra 98%, hr reg, Dr. Macias in this am and initially surg planned for am, changed to 1600 this afternoon and at 945 make NPO, IV heplocked, then after admin of the nucl med, restarted the ivf at 50ml/hr per NM instructions, and MD in room, will SL when trsf to NM approx 1330 today for bone scan.
--- NOTE | 2018-10-04 15:48 | PC.NURSE ---
TAKEN TO SURGERY
[2018-10-04] MEDS: LACTATED RINGERS 1,000 ML 42 ML IV ×2 (16:10→23:56)
[2018-10-04] MEDS: METOCLOPRAMIDE 10 MG/2 ML INJ IV (16:10)
[2018-10-04] MEDS: FAMOTIDINE 20 MG/50 ML PIGGYBACK 200 MG IV (16:11)
--- NOTE | 2018-10-04 16:25 | CM.DPC ---
DCP: continued: EMR review shows that pt was just taken to surgery under Dr. Duarte's care. Am unclear if the hernia surgery is the plan.. The results of bone scan are in.... DCP team to follow up tomorrow as more will be known.
[2018-10-04] MEDS: CEFAZOLIN 2 GM/100 ML FROZ.PIGGY IV (16:55)
--- NOTE | 2018-10-04 17:13 | SUR.OPER ---
Supine on padded OR bed, head on pillow, arms secured on padded arm boards at <90 degrees abduction, legs uncrossed, safety belt at thigh, tape over blanket over lower legs.
[2018-10-04] MEDS: BUPIVACAINE 0.5% W/ EPI (PF) VIAL 30 ML INJ (17:23)
[2018-10-04] MEDS: LIDOCAINE 1% 30 ML INJ INJ (17:24)
--- NOTE | 2018-10-04 17:48 | P.OP_ITS ---
Operative Date/Time/Diagnoses Date of procedure: 10/04/18 Time of procedure: 17:45 Pre-op diagnosis: Recurrent right direct inguinal hernia Post-op diagnosis: same Procedure & Clinicians Procedure: Max repair of a right inguinal hernia Same procedure as scheduled: Yes Indications: Recurrent right inguinal hernia Surgeon: Jun Macias Click Yes if Unassisted: Yes Anesthesia Type: General Operative Notes Findings: Direct right inguinal hernia Prosthetic devices, grafts, tissues, transplants, or devices: Hernia mesh was implanted Estimated Blood Loss (mL): 50 Blood products transfused: none Procedure in detail: Patient was properly identified during surgical pause given a general endotracheal anesthetic. Prepped and draped in a sterile fashion. transverse right inguinal incision was made through Alessandra's fascia exposing the upon neurosis of the external oblique muscle which was split in the direction of its fibers exposing the a spermatic cord. The cord was elevated surrounded with a [place] drain anteromedial aspect of the cord was inspected there is no indirect inguinal hernia sac patient had a reducible right direct hernia and I did not open that sac. a Max repair was done placing mesh over the Hesselbach's triangle stapling the mesh to the pubic tubercle medially conjoined tendon superiorly and medially 2 parts ligament laterally the mesh was incised to allow exit of the cord which was placed over the mesh and then the fish tail of the mesh was closed with gregory encircling the cord there was minimal bleeding which was controlled with the Bovie. Upon neurosis of the external oblique closed over the cord with running 2 0 Vicryl Alessandra's was closed with interrupted 3 0 Vicryl there was excellent hemostasis achieved with the Bovie the skin was staple sterile dressings applied the procedure was well tolerated. Complications: none Condition: stable Disposition: PACU
[2018-10-04] MEDS: CEFAZOLIN VIAL 3 GM in SODIUM CHLORIDE 0.9% 100 ML 200 ML IV (18:28)
--- NOTE | 2018-10-05 00:53 | PC.NURSE ---
2300- Pt is POD#1 R inguinal hernia repair w/ Dr Macias; dressing on R side has some drainage noted--prev RN states it has been there and has not worsened. Pt is c/o some R led sciatica pain but states he has dealt with that for years. Prev RN shut continuous IV fluids off, per MAY orders this RN has restarted those at a rate of 42 mL/hr. Tolerating regular diet, no problems voiding, and VSS on RA.
[2018-10-05 04:00] VITALS: BP 109/45; PULSE 73; RESP 16; TEMP 36.8; O2SAT 98
[2018-10-05 07:45] LABS: Add Manual Diff / Slide Review NO; Basophils Absolute Auto 0 /uL (0-100); Basophils Percent Auto 0.1 % (0-2); Eosinophils Absolute Auto 0 /uL (0-450); Eosinophils Percent Auto 0.1 % (2-4); Hematocrit 26.4 % (41-53); Hemoglobin 8.4 g/dL (13.5-17.5); Lymphocytes Absolute Auto 1700 /uL (1100-4500); Lymphocytes Percent Auto 13.7 % (25-40); Mean Corpuscular Hemoglobin 27.2 PG (26-34); Monocytes Absolute Auto 900 /uL (0-900); Monocytes Percent Auto 7.1 % (3-14); Neutrophils Absolute Auto 9700 /uL (1500-7000); Platelet Count 272 X10^3/uL (150-400); White Blood Cell Count 12.3 X10^3/uL (4.5-11.0)
[2018-10-05 08:10] VITALS: BP 123/69; PULSE 72; RESP 16; TEMP 36.9; O2SAT 98
--- NOTE | 2018-10-05 09:37 | PC.NURSE ---
Addendum entered by Cecile Blackmon R.N. 10/05/18 11:54: DC - TIRE VULCANIZER accompanied ambulatory with spouse, clothing, cell phone, bag and plant. Addendum entered by Cecile Blackmno R.N. 10/05/18 10:43: DC/PAIN - given 30mg iv toradol prior to discharge, in and pt will dc home, priority pass provided. Original Note: AM NOTE - pt is alert, up to window seat this am, continues with some r groin and thigh discomfort, winces occassionally with mobilization, discussed medications and pt is very reluctant to take any medications, including toradol, did agree to the toradol prior to when he discharges home and pt anxious to leave, nata lackey d, i w/shadow drainage.
[2018-10-05] MEDS: KETOROLAC 30 MG/ML VIAL IV ×2 (10:34)
--- NOTE | 2018-10-05 10:52 | P.DS_ITS ---
History of Present Illness Chief complaint: states incarcerated hernia Narrative: 73-year-old white male comes emergency room with numerous complaints. Most notably a right inguinal hernia which he is not able to reduce. He has had this hernia for a decade. This is a recurrence hernia which normally is reducible. Additionally the patient has bright red rectal bleeding for months. Furthermore he has excruciating pain in the low lumbar area on the right side radiating down the right leg. Patient has a history of prostatectomy for cancer about 12 years ago. He has not had follow-up for the last 5 years. He says that 5 years ago had a normal PSA. Had a colonoscopy over a decade ago. He has had this rectal bleeding for months. He is anemic with a hemoglobin of 9. He is writhing in bed with pain in his right thigh and right hip. Discharge Providers Date of admission: 10/01/18 18:49 Discharge Date: 10/05/18 Consults: 10/03/18 14:09 Consult to Dietitian, Adult Routine Comment: Reason For Exam: high fiber for hemorrhoids abd diverticulosis Discharge provider: Jun Macias MD Summary Discharge Diagnosis: Rectal bleeding hemorrhoids and diverticulosis Low back pain lumbar radiculopathy Recurrent right inguinal hernia Hospital Course: Patient was admitted with severe low back pain right sided radiculopathy red rectal bleeding and a recurrent right inguinal hernia which was incarcerated but reduced extensive workup ensued including a CT scan of the abdomen and pelvis which showed some demineralization of the pelvic bones. Further evaluation with bone scan and MRI failed to show any sign of metastatic disease in this patient with known prostate cancer. Colonoscopy was done which showed no tumor but does show diverticulosis in the sigmoid and some dilated internal hemorrhoids but there was nothing bleeding at the time of colonoscopy. right inguinal hernia was repaired. Patient has been instructed to take oral vitamin D calcium and iron he was given intravenous iron while in the hospital. At time of discharge is hemoglobin is 8.5. He did not receive any blood transfusions. Will be followed by his physician on [place] I have recommended physical therapy for the low back pain and anti-inflammatories. These will be directed by his local physician. No narcotics were given. He will follow up with his local physician to have his gregory removed in a week. Status at Discharge Cognitive/behavioral status at discharge: oriented Functional status at discharge: independent ambulation Overall status at discharge: patient is back to baseline Time Spent with Patient Less than 30 minutes Exam Vital Signs (past 8 hours): - 10/05/18 04:00 10/05/18 08:10 Temperature 98.3 F 98.5 F Pulse Rate 73 72 Respiratory Rate 16 16 Blood Pressure 109/45 L 123/69 Pulse Oximetry 98 98 Oxygen Delivery Method Room Air Oxygen Flow Rate 0 Objective Labs Result Diagrams: 10/05/18 06:26 10/01/18 16:45 Labs: Laboratory Results - last 24 hr 10/05/18 06:26 WBC 12.3 H D RBC 3.10 L Hgb 8.4 L Hct 26.4 L MCV 85.0 MCH 27.2 MCHC 32.0 RDW 15.0 H Plt Count 272 Neut % (Auto) 79.0 H D Lymph % (Auto) 13.7 L [place] % (Auto) 7.1 Eos % (Auto) 0.1 L Baso % (Auto) 0.1 Neut # (Auto) 9700 H Lymph # (Auto) 1700 [place] # (Auto) 900 Eos # (Auto) 0 Baso # (Auto) 0 Discharge Plan Discharge Plan Patient Disposition: Home Discharge comment: no heavy lifting 1 month Discharge Med Rec/Prescriptions Prescriptions: No Action No Known Home Medications RF: 0 Provider Discharge Instructions Diet: Diet as Tolerated Skin/Wound/Dressing Care Report to your healthcare provider any signs of infection, such as:: chills, fever and increased pain Dressing: change as needed Other wound treatment: gregory out in one week Visit Report/Discharge Packet Instructions: Groin Hernia -- Adult, DI for Hernia Repair, [facility]: Wound Care Discharge Data Attending Provider: Jun Macias Admit Date/Time: 10/01/18 18:49
--- NOTE | 2018-10-05 11:20 | CM.DPC ---
DCP Cont: Patient already left for home to [place], before this porter sample case could get him to sign IMM. Left him a message on his cell phone to call back in order to obtain a verbal. P: Will re-attempt to get a verbal on IMM. Patient was discharged home today. Yola Marte RN/Autism Specialist
== END 2018-10-05 10:45 | disposition home or self-care (01) | DRG 351 ==
LOC: ED 18:11 → AC 10-02 07:08
PROVIDERS: Admitting Provider Surgery; Emergency Provider Emergency Medicine; Visit Provider Surgery
PROC: 0DJD8ZZ Inspection of Lower Intestinal Tract, Via Natural or Artificial Opening Endoscopic (ICD-10-PCS; CPT 45378; principal; 2018-10-03 13:00)
PROC: 0YU50JZ Supplement Right Inguinal Region with Synthetic Substitute, Open Approach (ICD-10-PCS; principal; 2018-10-04 16:00)
DX: K62.5 Hemorrhage of anus and rectum (principal); K40.31 Unilateral inguinal hernia, with obstruction, without gangrene, recurrent; D62 Acute posthemorrhagic anemia; K60.2 Anal fissure, unspecified; K64.8 Other hemorrhoids; K57.30 Diverticulosis of large intestine without perforation or abscess without bleeding; R52 Pain, unspecified; M54.16 Radiculopathy, lumbar region
CPT/HCPCS: 36415; 36591; 45378; 49505; 72149; 74019; 74177; 78306; 80053; 83605; 83690; 84153; 85025; 93005; 96374; 96375; 99152; 99222; 99231; 99282; 99284; A9503; C1781; J0690; J1100; J1170; J1756; J1885; J2060; J2250; J2270; J2405; J2704; J2765; J3010; J7050; Q9967